=== PATIENT | female | born 1965 | race Caucasian/White ===

== ENCOUNTER → 2019-09-19 | Day surgery (SDC) | payer BC, OTHER ==
--- OUTSIDE RECORDS SUMMARY | 2019-09-19 09:36 | XMS REPORT | Continuity of Care Document ---
:1965 Author Organization [employer] Care Team Providers Name Role Phone [facility] [employer] Unavailable Un available Problems Problem Status Onset Classification Date Comments Sourc e Date Reported CERVICAL STENOSIS Active 03/23/[address] REMOVING BULDING Active 03/15/20 [facility] DIS [address] [place] [address] REMOVE BULDING DISC Active 03/15/[address] Cervical Active 10/01/19 Problem 10/09/2016 Data [facility] radiculopathy 15 migrated Medica l (disorder) from [facility], [facility] OPID on 12/01/14. [place] Pain in thoracic Active 10/01/19 Problem 10/09/2016 Data [facility] spine (finding) 15 migrated Medi johny from [facility], [facility] OPID on 12/01/14. [place] Skin sensation Active 10/01/19 Problem 10/09/2016 Data [place] disturbance 15 migrated Medical (finding) from [facility], [facility] OPID on 12/01/14. [place] LONG-TERM (CURRENT) Active 10/01/19 Condition 10/19/2014 [facility] USE OF OTHER 15 Neuro MEDICATIONS CERVICAL NECK PAIN Active 10/01/19 Condition 10/19/2014 [facility] 15 Neuro PAIN IN THORACIC Active 10/01/19 Condition 10/19/2014 [place] g[place] SPINE 15 Neuro CERVICAL Active 10/01/19 Condition 10/19/2014 [facility] RADICULOPATHY 15 Neuro DISTURBANCE OF SKIN Active 10/01/19 Condition 10/19/2014 [facility] SENSATION 15 Neuro Asthma (disorder) Active Problem 10/09/2016 [facility], OPID [place] Cervical disc Active Problem 10/09/2016 [place] disorder (disorder) [facility], [facility] [place] Gastroesophageal Resolved Problem 10/09/2016 [facility] reflux disease Jessica nn (disorder) Hypertensive Active Problem 10/09/2016 [place] as disorder, systemic M edical arterial (disorder) Center, OPID [place] Morbid obesity Active Problem 10/09/2016 [place] (disorder[facility] Obesity (disorder) Active Problem 10/09/2016 [facility] Endometriosis Resolved Problem 11/27/2015 [place] (morphologic Medical abnormality) Center, [facility] OTHER CERVICAL DISC Active [facility] DISPLACEMENT, Medica l MID-CE Center SPINAL STENOSIS, Active [facility] CERVICAL REGION [facility] OTHER SPECIFIED Active [facility] CONGENITAL Medical DEFORMITIES Center Medications Medication Details Route Status Patient Ordering Order Source Instructions Provider Date tramadol 50 mg = 1 tab, Active 03/26[facility] [place] hydrochloride 50 PO, Q4H, PRN 2014 Or dical MG Oral Tablet Pain, # 90 tab, C enter 0 Refill(s) {21 See Active 03/26[facility] (Methylprednisol Instructions, 2014 edical one 4 MG Oral PO, Take by Silex Tablet [Medrol]) mouth as } Pack [Medrol directed on Dosepak] label., X 6 day, # 1 Pack, 0 Refill(s), Pharmacy: [facility]/pharmacy #[id number] Docusate Sodium 50 mg = 1 cap, Active H [place] 50 MG Oral PO, BID, PRN 2014 Medical Capsule Constipation, # Center 60 cap, 0 Refill(s), Pharmacy: [facility]/pharmacy #[id number] pneumococcal Notes: (Same Inactive 03/26[facility] [place] capsular as: Pneumovax 2015 [facility] polysaccharide 23) Silex type 1 vaccine / Refrigerate pneumococcal capsular polysaccharide type 10A vaccine / pneumococcal capsular polysaccharide type 11A vaccine / pneumococcal capsular polysaccharide type 12F vaccine / pneumococcal capsular polysacchar influenza virus Notes: (Same Inactive 03/26[facility] vaccine, as: Fluzone 2015 [facility] inactivated Quadrivalent) Center For 3 years of age and older (0.5 mL IM) Shake well before use Losartan Notes: (Same Inactive 03/26[facility] [place] as: Cozaar) [address] [place] [address] Bupropion Notes: (Do not Inactive 03/26[facility] as crush) (Same 2014 Medical As: Wellbutrin Silex SR) phenol Notes: Inactive 03/26[facility] Chloraseptic 2015 Medical [place] (Same as: Silex Chloraseptic, Sore Throat [place]) Benzocaine 15 MG 1 lozenge, Inactive 03/26[facility] / Menthol 3.6 MG Route: PO, 2014 [facility] Lozenge [Cepacol Dosing Weight C enter Sore Throat Pain 109.091, kg, Relief 15/3.6] Q2H, PRN as needed for sore throat, Routine, Start date: 03/26/15 4:00:00, Duration: 30 day, Stop date: 04/25/15 3:59:00 budesonide-formo Notes: (Same No Longer [place] terol 160 as: Symbicort) Active 2014 Medical mcg-4.5 mcg/inh Center inhalation aerosol with adapter ceFAZolin (SCIP) Notes: (Same No Longer [place] + Sodium As: Ancef, Active 2014 Medical Chloride 0.9% IV Kefzol) Silex 100 mL Cefazolin FOR IV SET ONLY MEDICATION WASTE Product Size: 1000 mg Product Wasted: ___ mg Dexamethasone Notes: No Longer [place] Concentration: Active 2014 Medical 4mg/ml [place] Advair Diskus 1 puff, Route: Inactive [place] 500 mcg-50 mcg INHALATION, 2014 Medic al inhalation Drug Form: Silex powder AERO, Dosing Weight 109.091, kg, BID, Start date: 03/25/15 17:00:00, Duration: 30 day, Stop date: 04/24/15 9:00:00 gabapentin 300 Notes: (Same No Longer [place] MG Oral Capsule as: Neurontin) Active 2014 edical [place] Acetaminophen 1 tab, Route: Inactive [place] 325 MG / PO, Drug Form: 2014 Medical Hydrocodone TAB, Dosing Center Bitartrate 10 MG Weight 109.091, Oral Tablet kg, Q4H, Start [[place] 10/325] date: 03/25/15 16:00:00, Duration: 30 day, Stop date: 04/24/15 12:00:00 ceFAZolin (SCIP) 2 gm, Route: Inactive [facility] IVPB, Drug 2014 Medical form: INJ, Q8H, Center Dosing Weight 109.091, kg, Start date: 03/25/15 16:00:00, Duration: 24 hr, Stop date: 03/26/15 8:00:00 Robaxin 500 mg, Route: Inactive [place] PO, Drug form: 2014 Medical TAB, QID, Center Dosing Weight 109.091, kg, PRN Spasm, Start date: 03/25/15 13:55:00, Duration: 30 day, Stop date: 04/24/15 13:54:00 Reglan 10 mg, Route: Inactive [place] IVP, Drug form: [address] [place] [address] INJ, Q6H, Center Dosing Weight 109.091, kg, PRN Nausea & Vomiting, Start date: 03/25/15 13:55:00, Duration: 30 day, Stop date: 04/24/15 13:54:00 NS 1,000 mL 1,000 mL, Rate: No Longer [place] 75 ml/hr, Active 2014 Medical Infuse over: Center 13.3 hr, Route: IV, Dosing Weight 109.091 kg, Total Volume: 1,000, Start date: 03/25/15 13:55:00, Stop date: 04/24/15 13:54:00 Dilaudid 0.5 mg, Route: Inactive Arvin s IV, Q3H, Dosing [facility] Medical Weight 109.091, Center kg, PRN Pain Score 7-10, Start date: 03/25/15 13:55:00, Duration: 30 day, Stop date: 04/24/15 13:54:00 Benzocaine 15 MG 1 lozenge, Inactive [place] / Menthol 3.6 MG Route: MUCOUS 2014 M edical Lozenge [Cepacol MEM, Drug Form: Silex Sore Throat Pain FARZANEH, Dosing Relief 15/3.6] Weight 109.091, kg, Q2H, PRN Sore Throat, Start date: 03/25/15 13:54:00, Duration: 30 day, Stop date: 04/24/15 13:53:00 Benadryl 25 mg, Route: Inactive [place] IVP, ONCE, [facility] Medical Dosing Weight Center 109.091, kg, PRN Itching, Start date: 03/25/15 13:54:00 Clonazepam Notes: (Same No Longer Jose as As: KlonoPIN) Active [address] [place] [address] Hydromorphone Notes: Same as: No Longer [place] Dilaudid Active [address] [place] [address] Labetalol 10 mg, 2 mL, [place] Longer [place] Route: IVP, Active 2014 Medical Drug form: INJ, Center Q5Min, Dosing Weight 109.091, kg, PRN Elevated BP, Start date: 03/25/15 12:28:00, Duration: 5 doses or times, Stop date: 03/26/15 0:00:00 Promethazine Notes: (Same No Longer [place] as: Phenergan) Active 2014 Medical Center Acetaminophen Notes: Do not No Longer [place] 325 MG / exceed 4gm/day Active 2014 Medical Hydrocodone of Center Bitartrate 10 MG acetaminophen. Oral Tablet (Same as: [place] [[place] [address]] 325/10) Dexamethasone 4 mg, Route: Inactive [place] IVP, Q6H, 2014 Medical Dosing Weight Center 109.091, kg, Start date: 03/25/15 12:00:00, Duration: 30 day, Stop date: 04/24/15 6:00:00 Promethazine 6.25 mg, Route: Inactive [facility] IVPB, ONCE, 2014 Medical Dosing Weight Center 109.091, kg, PRN Nausea & Vomiting, Start date: 03/25/15 11:53:00 Midazolam 1 mg, Route: Inactive [facility] IVP, Q5Min, 2014 Medical Dosing Weight Center 109.091, kg, PRN Anxiety, Start date: 03/25/15 11:53:00, Duration: 2 doses or times, Stop date: Limited # of times Hydromorphone 0.5 mg, Route: Inactive [facility] IVP, Q5Min, 2014 Medical Dosing Weight Center 109.091, kg, PRN Pain Score 7-10, Start date: 03/25/15 11:53:00, Duration: 4 doses or times, Stop date: Limited # of times Labetalol 10 mg, Route: Inactive [place] s IVP, Q5Min, 2014 Medical Dosing Weight Center 109.091, kg, PRN Elevated BP, Start date: 03/25/15 11:53:00, Duration: 5 doses or times, Stop date: Limited # of times Hydromorphone 0.5 mg, Route: Inactive [facility] IVP, Q5Min, 2014 Medical Dosing Weight Center 109.091, kg, PRN Pain Score 7-10, Start date: 03/25/15 11:45:00, Duration: 4 doses or times, Stop date: Limited # of times Promethazine 6.25 mg, Route: Inactive [facility] IVPB, ONCE, 2014 Medical Dosing Weight Center 109.091, kg, PRN Nausea & Vomiting, Start date: 03/25/15 11:45:00 Labetalol 10 mg, Route: Inactive [place] IVP, Q5Min, 2014 Medical Dosing Weight Center 109.091, kg, PRN Elevated BP, Start date: 03/25/15 11:45:00, Duration: 5 doses or times, Stop date: Limited # of times 72 HR 1.5 mg, 1 Inactive [facility] Scopolamine patch, Route: 2014 Medica l 0.0139 MG/HR TOP, Dosing Center Transdermal Weight 109.091, Patch kg, ONCE, Start date: 03/25/15 11:20:00, Stop date: 03/25/15 11:20:00 Reglan Notes: (Same No Longer [facility] as: Reglan) Active 2014 Medical Center Benadryl Notes: (Same Inactive [facility] as: Benadryl) 2014 [facility] Benzocaine 15 MG Notes: Cepacol No Longer [facility] / Menthol 3.6 MG lozenges Active 2014 Medica l Lozenge [Cepacol Dispense 1 box Center Sore Throat Pain = 16 lozenges Relief 15/3.6] (Same As: Cepacol Lozenges) Zofran 4 mg, Route: Inactive [facility] PO, Drug form: 2014 Medical TAB, Q8H, Center Dosing Weight 109.091, kg, PRN Nausea, Start date: 03/25/15 11:10:00, Duration: 30 day, Stop date: 04/24/15 11:09:00 200 ACTUAT Notes: No Longer [facility] Albuterol 0.09 Albuterol 90 Active 2014 Medi johny MG/ACTUAT microgram/inh Center Metered Dose 8gm HFA Same Inhaler [ProAir as: Ventolin, HFA] Proventil Zofran Notes: (Same No Longer [place] as: Zofran) Active 2014 Medical Center Robaxin Notes: (Same No Longer [place] as:Robaxin) Active 2014 Medical Center NS 1000 mL 1,000 mL, Rate: Inactive [place] 75 ml/hr, 2014 Medical Infuse over: Center 13.3 hr, Route: IV, Dosing Weight 109.091 kg, Total Volume: 1,000, Start date: 03/25/15 11:09:00, Duration: 30 day, Stop date: 04/24/15 11:08:00 Dilaudid Notes: Same as: [place] Longer [place] Dilaudid Active 2014 [facility] Center Acetaminophen 1 tab, PO, TID, Active [place] 325 MG / PRN Pain, X 30 2015 Medical Hydrocodone day, # 90 day, Cente r Bitartrate 10 MG 0 Refill(s) Oral Tablet [[place] 10/325] Docusate Sodium 50 mg = 1 cap, No Longer [place] 50 MG Oral PO, BID, PRN Active 2014 Medical Capsule Constipation, # Center 60 cap, 0 Refill(s) Methocarbamol 500 mg = 1 tab, Active [place] 500 MG Oral PO, Q8H, PRN 2015 Medical Tablet [Robaxin] Spasms, X 20 Ce nter day, # 60 tab, 0 Refill(s) Ondansetron 4 MG 4 mg, PO, Q8H, Active [place] Oral Tablet PRN Nausea, X 2015 Medica l [Zofran] 15 day, # 45 Center tab, 0 Refill(s) {21 See No Longer [place] (Methylprednisol Instructions, Active 2014 edical one 4 MG Oral PO, Take by Center Tablet [Medrol]) mouth as } Pack [Medrol directed on Dosepak] label., X 6 day, # 1 Pack, 0 Refill(s) bupivacaine Notes: (Same No Longer [place] liposome as: Exparel) Active 2014 Medical NOT FOR IV Center use Postoperative analgesia: Infiltration (local): Dose is based on surgical site and volume required to cover the area (in general, the maximum total dose is 266 mg). Bunionectomy: 7 mL into the tissues surrounding the osteotomy and 1 mL into the subcutaneous tissue of the surgical site (total dose = 8 mL [106 mg]) Hemorrhoidectom y: 30 mL (20 mL vial diluted with 10 mL NS) divided and administered as 6 injections of 5 mL each (total dose = 30 mL [266 mg]) ceFAZolin Notes: Same as: No Longer Gene Zheng Active 2014 [facility] gabapentin 300 600 mg = 2 cap, Active H [place] MG Oral Capsule PO, TID, 0 2015 Medic al Refill(s) Silex buPROPion 300 300 mg = 1 tab, Active [place] mg/24 hours oral PO, Daily, # 30 2015 Medical extended release tab, 0 Center tablet Refill(s) tramadol 2 tabs, PO, Active [place] hydrochloride 50 Q4H, 0 2015 Medical MG Oral Tablet Refill(s) Silex losartan 50 mg 50 mg = 1 tab, Active [place] oral tablet PO, Daily, # 30 2015 Medi johny tab, 0 Center Refill(s) 200 ACTUAT 2 puff, Active [place] Albuterol 0.09 INHALER, Q4H, 2015 Med ical MG/ACTUAT PRN for Center Metered Dose wheezing, # 8.5 Inhaler [ProAir gm, 0 Refill(s) HFA] Advair Diskus 1 puff, Active [place] 500 mcg-50 mcg INHALATION, 2015 Medic al inhalation BID, # 1 ea, 3 Center powder Refill(s) clonazePAM 1 mg 1 mg = 1 tab, Active [place] oral tablet PO, TID, prn, 0 2014 Medi johny Refill(s) Center GABAPENTIN 300 1 PO Q HS Active 10/19/ [facility] MG CAPS 2015 Neuro TYLENOL WITH 1-2 tablets Active CODEINE #3 every 6 hours 2015 Neuro 300-30 MG TABS as needed for pain GABAPENTIN 100 Take one Active 10/12/ [facility] MG CAPS capsule by 2015 Neuro mouth twice a day NORCO 7.5-325 MG 1 PO Q 8 hours Active 09/30/ [facility] TABS PRN pain 2014 Neuro GABAPENTIN 300 take one tab po No Longer 09/30/ [facility] MG CAPS qhs x 3 nights, Active 2014 Neuro then one tab po bid x 3 days, then one tab po tid Allergies, Adverse Reactions, Alerts Substance Category Reaction Severity Reaction Status Date Comments S ource type Reported Cipro<sup>1 Assertion Drug Active Rash OPID </sup> allergy [place] Immunizations Immunization Date Given Site Status Last Comments Source Updated pneumococcal 03/26/2015 Left completed Doetsch Jose as 23-valent vaccine Deltoid Or dical Center, [facility] influenza virus 03/26/2015 Right completed Doetsch [facility] vaccine, Deltoid Medical inactivated Center,M H [facility] [place] Results Order Name Results Value Reference Date Interpretation Comments Farheen rce Range CHEM PANEL eGFR 71 03/25 Result Comment: The Medical eGFR is Center calculated using the CKD-EPI formula. In most young, healthy individuals the eGFR will be >90 mL/min/1.73m2 . The eGFR declines with age. An eGFR of 60-89 may be normal in some populations, particularly the elderly, for whom the CKD-EPI formula has not been extensively validated. Use of the eGFR is not recommended in the following populations:< br/>
Elen viduals with unstable creatinine concentration s, including patients and those with serious co-morbid conditions.<b r/>
Patie nts with extremes in muscle mass or diet.

The data above are obtained from the National Kidney Disease Education Program (NKDEP) which additionally recommends that when the eGFR is used in patients with extremes of body mass index for purposes of drug dosing, the eGFR should be multiplied by the estimated BMI. CHEM PANEL Chloride Lvl 105 95 - 109 03/25 [facility] CHEM PANEL Calcium Lvl 8.6 8.5 - 10.5 03/25 [facility] CHEM PANEL CO2 27 24 - 32 03/25 [facility] CHEM PANEL AGAP 15.1 10.0 - 03/25 [facility] 20.0 [facility] CHEM PANEL BUN 10 7 - 22 03/25 [facility] CHEM PANEL Glucose Lvl 78 70 - 99 03/25 [facility] CHEM PANEL Sodium Lvl 143 135 - 145 03/25 [facility] CHEM PANEL Creatinine 0.93 0.50 - 03/25 [facility] Lvl 1.40 /2014 [facility] CHEM PANEL Potassium Lvl 4.1 3.5 - 5.1 03/25 [facility] ELECTROLYTES AGAP 15.3 10.0 - 03/15 [place] 20.0 [facility] ELECTROLYTES eGFR 56 03/15 [facility] Comment: The Medical eGFR is Center calculated using the CKD-EPI formula. In most young, healthy individuals the eGFR will be >90 mL/min/1.73m2 . The eGFR declines with age. An eGFR of 60-89 may be normal in some populations, particularly the elderly, for whom the CKD-EPI formula has not been extensively validated. Use of the eGFR is not recommended in the following populations:< br/>
Elen viduals with unstable creatinine concentration s, including patients and those with serious co-morbid conditions.<b r/>
Patie nts with extremes in muscle mass or diet.

The data above are obtained from the National Kidney Disease Education Program (NKDEP) which additionally recommends that when the eGFR is used in patients with extremes of body mass index for purposes of drug dosing, the eGFR should be multiplied by the estimated BMI. ELECTROLYTES Calcium Lvl 9.5 8.5 - 10.5 03/15 [place] [facility] ELECTROLYTES Sodium Lvl 148 135 - 145 03/15 [facility] ELECTROLYTES CO2 31 24 - 32 03/15 [facility] ELECTROLYTES Chloride Lvl 107 95 - 109 03/15 [facility] ELECTROLYTES Potassium Lvl 5.3 3.5 - 5.1 03/15 [facility] ELECTROLYTES Creatinine 1.13 0.50 - 03/15 [facility] Lvl 1.40 [facility] ELECTROLYTES Glucose Lvl 106 70 - 99 03/15 [facility] ELECTROLYTES BUN 10 7 - 22 03/15 2014 [facility] HEMATOLOGY Lymphocytes 29.7 20.0 - 03/15 [place] 40.0 [facility] HEMATOLOGY Segs 52.4 45.0 - 03/15 [place] 75.0 [facility] HEMATOLOGY Lymphocytes # 2.1 1.0 - 5.5 03/15 [facility] HEMATOLOGY Segs-Bands # 3.7 1.5 - 8.1 03/15 [facility] HEMATOLOGY Basophils 1.1 0.0 - 1.0 03/15 [facility] HEMATOLOGY Eosinophils 8.2 0.0 - 4.0 03/15 [facility] HEMATOLOGY Basophils # 0.1 0.0 - 0.2 03/15 [facility] HEMATOLOGY Eosinophils # 0.6 0.0 - 0.5 03/15 [place] [facility] HEMATOLOGY Monocytes # 0.6 0.0 - 0.8 03/15 [facility] HEMATOLOGY Monocytes 8.6 2.0 - 12.0 03/15 [facility] HEMATOLOGY Platelet 282 133 - 450 03/15 [facility] HEMATOLOGY Hgb 13.1 12.0 - 03/15 [place] 16.0 [facility] HEMATOLOGY RBC 4.37 4.20 - 03/15 [place] 5.40 /2014 [facility] HEMATOLOGY WBC 7.1 3.7 - 10.4 03/15 [facility] HEMATOLOGY MCH 30.0 27.0 - 03/15 [place] 31.0 [facility] HEMATOLOGY MCV 93.9 80.0 - 03/15 98.0 [facility] HEMATOLOGY Hct 41.1 36.0 - 03/15 48.0 [facility] HEMATOLOGY MCHC 32.0 32.0 - 03/15 36.0 [facility] HEMATOLOGY RDW 12.9 11.5 - 03/15 14.5 [facility] HEMATOLOGY MPV 8.9 7.4 - 10.4 03/15 [facility] SPECIAL Hgb A1C 5.5 <=5.6 % 03/15 [facility] Pathology Reports No Data Provided for This Section Diagnostic Reports Report Value Date Source Hip wo contrast MRI EXAM: MR RIGHT HIP WITHOUT CONTRAST 10/07/19 17 [facility] [place] EXAM: MR LEFT HIP WITHOUT CONTRAST DATE: 10/06/2016 6:25 PM CDT INDICATION: Bilateral hip pain. COMPARISON: None TECHNIQUE: Multiplanar, multisequence MR noncont rast imaging of each hip. DISCUSSION: Labrum: Bilateral degenerative tear of the ante rosuperior labrum. Ligaments: The visualized li gamentum teres and the capsular ligaments are intact. Muscles: No signal abnormality in the muscles. Cartilage: No focal defects. No subchondral [place] ow changes. Bone: No fracture is identif ied. Visualized bone marrow signal is within normal limits. Mild osteophyte and articular surface irregularity of the pubic symphysis. Soft tissue: No joint effusi on or fluid collection. No abnormality of the neurovascular structures. Minimal asymmetric edema over the greater trochanters, right greater than left. IMPRESSION: 1. Bilateral degenerative te ars of the anterosuperior labrum. No chondromalacia of the hip joints. 2. Minimally asymmetric ena a over the right greater trochanter, which can be seen in mild greater trochanter bursitis. 3. Mild pubic symphyseal osteoarthrosis. Hip wo contrast MRI EXAM: MR RIGHT HIP WITHOUT CONTRAST 10/07/19 17 [facility] [place] EXAM: MR LEFT HIP WITHOUT CONTRAST DATE: 10/06/2016 6:25 PM CDT INDICATION: Bilateral hip pain. COMPARISON: None TECHNIQUE: Multiplanar, multisequence MR noncont rast imaging of each hip. DISCUSSION: Labrum: Bilateral degenerative tear of the ante rosuperior labrum. Ligaments: The visualized li gamentum teres and the capsular ligaments are intact. Muscles: No signal abnormality in the muscles. Cartilage: No focal defects. No subchondral [place] ow changes. Bone: No fracture is identif ied. Visualized bone marrow signal is within normal limits. Mild osteophyte and articular surface irregularity of the pubic symphysis. Soft tissue: No joint effusi on or fluid collection. No abnormality of the neurovascular structures. Minimal asymmetric edema over the greater trochanters, right greater than left. IMPRESSION: 1. Bilateral degenerative te ars of the anterosuperior labrum. No chondromalacia of the hip joints. 2. Minimally asymmetric ena a over the right greater trochanter, which can be seen in mild greater trochanter bursitis. 3. Mild pubic symphyseal osteoarthrosis. Spine lumbar wo EXAM: MRI LUMBAR SPINE WITHOUT CONTRAST 10/07/19 17 [facility] [place] contrast MRI DATE: 10/06/2016 INDICATION: pain - r COMPARISON: None. TECHNIQUE: Sagittal T1, sagi ttal T2, sagittal T2 with fat saturation, axial T1, and axial T2-weighted images of the lumbar spine are obtained without contrast. DISCUSSION: The conus medullaris termina bruce at the level of L1. The lumbar vertebral bodies are normal in height and alignment. At L1-L2, no spinal canal or foraminal narrowing is present. At L2-L3, endplate spurring with superimposed central disc protrusion/extrusion with no high-grade spinal canal narrowing. Bilateral foramina are patent. At L3-L4, endplate spurring and disc bulge with no spinal canal or foraminal narrowing. At L4-L5, bilateral facet ar thropathy resulting in bilateral subarticular zone narrowing and abutment of traversing right L5 nerve root. Bilateral foramina are patent. At L5-S1, no high-grade spin al canal narrowing is present. Facet arthropathy and endplate spurring resulting in moderate to marked left neural foraminal narrowing with impingement of the left exiting L5 nerve root. Mild right foraminal narrowing. IMPRESSION: 1. Mild degenerative change s contributing to moderate to marked left neural foraminal narrowing L5-S1 with impingement of the left exiting L5 nerve root. Degenerative facet arthropathy at L4-L5 resulti ng in subarticular zone narr owing and abutment of traversing right L5 nerve root. Spine cervical 2 or 3 EXAM: XR CERVICAL SPINE 2 VIEWS 11/24/2015 [facility] [place] view DX DATE: 11/24/2015, 0952 hours INDICATION: Spinal stenosis COMPARISON: None TECHNIQUE: AP and lateral views of the cervical spine FINDINGS: There has been gary or anterior cervical disc fusion at C5-6 with intervertebral disc spacer with incorporation. There is no perihardware lucency or evidence of failure. Remainder of the vertebr al body heights and disc spa paxton are maintained. Minimal grade 1 retrolisthesis of C3 on C4. No acute fracture or malalignment is identified. Facet arthropathy of the mid and lower cervical spine. Prevertebral soft tissues are within normal limits. IMPRESSION: 1. Satisfactory appearance o f the anterior cervical disc fusion at C5-6 without hardware failure. No acute fracture or malalignment is identified. 2. Minimal grade 1 retrolist hesis at C3-4 with facet arthropathy from the mid to lower cervical spine. Consultation Notes No Data Provided for This Section Discharge Summaries No Data Provided for This Section History and Physicals No Data Provided for This Section Vital Signs Vital Sign Value Date Comments Source Heart Rate 70 03/26/2015 [facility] Systolic (mm Hg) 102 03/26/2015 [facility] Diastolic (mm Hg) 65 03/26/2015 [facility] Systolic (mm Hg) 95 03/26/2015 [facility] Diastolic (mm Hg) 61 03/26/2015 [facility] Respitory Rate 18 03/26/2015 [facility] Heart Rate 57 03/26/2015 [facility] Temperature Oral (F) 98.1 F 03/26/2015 [facility] Systolic (mm Hg) 107 03/26/2015 [facility] Diastolic (mm Hg) 64 03/26/2015 [facility] Respitory Rate 18 03/26/2015 [facility] Heart Rate 55 03/26/2015 [facility] Temperature Oral (F) 97.8 F 03/26/2015 [facility] Respitory Rate 18 03/26/2015 [facility] Temperature Oral (F) 98.0 F 03/26/2015 [facility] Height 165.1 cm 03/25/2015 [facility] BMI Calculated 40.02 03/25/2015 [facility] Weight 109.091 03/25/2015 [facility] BMI Calculated 40.69 03/15/2015 [facility] Weight 110.909 03/15/2015 [facility] Height 165.1 cm 03/15/2015 [facility] Height 65 10/19/2014 [facility] Systolic (mm Hg) 125 10/19/2014 [facility] Diastolic (mm Hg) 85 10/19/2014 [facility] Heart Rate 75 10/19/2014 [facility] Weight 247.8 10/19/2014 [facility] Temperature Oral (F) 98.3 F 10/19/2014 [facility] Systolic (mm Hg) 133 10/06/2014 [facility] Diastolic (mm Hg) 84 10/06/2014 [facility] Heart Rate 83 10/06/2014 [facility] Temperature Oral (F) 98.3 F 10/06/2014 [facility] Height 65 09/30/2014 [facility] Weight 247.1 09/30/2014 [facility] Temperature Oral (F) 98.0 F 09/30/2014 [facility] Heart Rate 82 09/30[facility] Systolic (mm Hg) 124 09/30/2014 [facility] Diastolic (mm Hg) 86 09/30/2014 [facility] Weight 247.1 09[facility]2014 [facility] Height 65 09/30/2014 [facility] Temperature Oral (F) 98.0 F 09/30/2014 [facility] Respitory Rate 12 09/30/2014 [facility] Heart Rate 82 09/30/2014 [facility] Systolic (mm Hg) 124 09/30/2014 [facility] Diastolic (mm Hg) 86 09/30/2014 [facility] En[facility] Location Location Encounter Encounter Reason Attending ADM DC Stat us Source Details Type Number For Provider Date Date [place] [facility] [id number] Lilia 10/19 10/19 [facility] Visit [address] [facility] [id number] 12/22 [facility] [id number] 12/22 [facility] Outpatient [id number] JEWEL RAMOS 02/01 Act [place] [facility] [id number] JEWEL RAMOS 03/15 [facility] [place] [facility] [id number] JEWEL RAMOS 03/25 Act [facility] Inpatient [id number] Jewel Ramos 03/25 03/26 [facility]2014 [facility] Outpatient [id number] YULIA 04/05 [facility] Outpatient [id number] JEWEL RAMOS [facility] Outpatient [id number] JEWEL RAMOS 06/27 [facility] Out[facility] [id number] JEWEL RAMOS 08/22 [facility] [place] Outpatient [id number] JEWEL RAMOS 11/23 Act j[facility]ae [facility] Outpt Diag [id number] Jewel Ramos 11/23 11/24 [facility] [place] Outpatient [id number] LILIA01/09 [facility] [place] Outpatient [id number] LILIA01/25 [facility] Outpatient [id number] 09/20 [facility] Outpatient [id number] 10/03 [facility] [place] [facility] Outpt Diag [id number] 10/06 [facility] [place] Outpatient [id number] 10/[address] [facility] [place] Outpatient [id number] 10/[address] [facility] [place] Outpatient [id number] 11/[address] [facility] Procedures Procedure Code Date Perfomer Comments Source Fusion (ACDF C5/6) [id number] 03/25/2015 [facility] D [place] Cervical epidural [id number] 10/06/2014 [place] C7-T1 #1 Medical injection<sup>1</sup> [facility], [facility] [place] Appendectomy [id number] [facility] [place] Cholecystectomy [id number] [facility] [place] Hysterectomy [id number] [facility] [place] Assessment and Plan No Data Provided for This Section Plan of Care No Data Provided for This Section Social History Social History Date Source Social History TypeResponse 02/02/2015 [employer] Employment/School Status: Employed. Alcohol Current, Frequency: 1-2 times per month. Smoking Status Never smoker; Exposure to Tobacco Smoke None; Cigarette Smoking Last 365 Days No; Reg Smoking Cessation Counseling No Social History TypeResponse 02/02/2015 [facility] Employment/School Status: Employed. Alcohol Current, Frequency: 1-2 times per month. Smoking Status Never smoker; Exposure to Tobacco Smoke None; Cigarette Smoking Last 365 Days No; Reg Smoking Cessation Counseling No Family History No Data Provided for This Section Advance Directives No Data Provided for This Section Functional Status No Data Provided for This Section
--- OUTSIDE RECORDS SUMMARY | 2019-09-19 09:38 | XMS REPORT | Continuity of Care Document ---
:1965 Author Organization [facility] t Address [address] [place] [address] Care Team Providers Name Role Phone Doctor Unassigned, Name Attending Clinician Unavailable Rashad ANDERSON Attending Clinician Felicity Attending Clinician Unavailable Rosario Fields Attending Clinician Carmen Ramos Attending Clinician Carmen Ramos Admitting Clinician Payers Payer Name Policy Type Policy Number Effective Date Expiration Date S ource Problems Condition Condition Condition Status Onset Resolution Last Treating Co mments Source Name Details Category Date Date Treatment Clinician Date CERVICAL Diagnosis Active 2014-042015-05-03 M emoria STENOSIS 05-24 16:21:00 l CERVICAL 00:00: Jose n STENOSIS 00 Active 03/23/2015 [facility] REMOVING Diagnosis Active 2014-042015-03-26 M emoria BULDING 05-16 15:49:00 l DIS REMOVING 14:25: Jose n BULDING 00 DIS Active 03/15/2015 [facility] REMOVE Diagnosis Active 2014-042015-05-01 Mem oria BULDING 2-07 15:39:00 l DISC REMOVE 14:20: [place] BULDING 00 DISC Active 03/15/2015 [facility] Cervical Problem Active 2016-10-09 Mem oria radiculopa 09-30 00:47:32 l thy Cervical 00:00: Jose n (disorder) radiculopa 00 thy (disorder) Active 09/30/2014 Problem 10/09/2016 Data migrated from [employer] on 12/01/14. [facility] OPID [place] Pain in Problem Active 2016-10-09 Manny emily thoracic 09-30 00:47:32 l spine Pain in 00:00: [place] (finding) thoracic 00 spine (finding) Active 09/30/2014 Problem 10/09/2016 Data migrated from [employer] on 12/01/14. [facility] CARMEN [place] Skin Problem Active 2016-10-09 Memor ia sensation 09-30 00:47:32 l disturbanc Skin 00:00: Jose n e sensation 00 (finding) disturbanc e (finding) Active 09/30/2014 Problem 10/09/2016 Data migrated from [employer] on 12/01/14. [facility] CARMEN [place] LONG-TERM Condition Active 2014-10-19 Memoria (CURRENT) 09-30 09:38:54 l USE OF 00:00: Jamaal OTHER LONG-TERM 00 MEDICATION (CURRENT) S USE OF OTHER MEDICATION S Active 09/30/2014 Condition 5 [facility] CERVICAL Condition Active 2014-10-19 M emoria NECK PAIN 09-30 09:38:54 l CERVICAL 00:00: Jose n NECK PAIN 00 Active 09/30/2014 Condition 5 [facility] PAIN IN Condition Active 2014-10-19 Me moria THORACIC 09-30 09:38:54 l SPINE PAIN IN 00:00: [place] THORACIC 00 SPINE Active 09/30/2014 Condition 5 [facility] CERVICAL Condition Active 2014-10-19 M emoria RADICULOPA 09-30 09:38:54 l THY CERVICAL 00:00: Jose n RADICULOPA 00 THY Active 09/30/2014 Condition 5 [facility] DISTURBANC Condition Active 2014-2014-10-19 Memoria E OF SKIN 09-30 09:38:54 l SENSATION 00:00: Jamaal DISTURBANC 00 E OF SKIN SENSATION Active 09/30/2014 Condition 5 [facility] Gastroesop Problem Resolve 2016-10-09 Memoria hageal d 00:47:32 l reflux Jamaal disease Gastroesop (disorder) hageal reflux disease (disorder) Resolved Problem 10/09/2016 [facility] [place] Endometrio Problem Resolve 2015-11-27 Memoria sis d 03:22:47 l (morpholog Jose n ic Endometrio abnormalit sis y) (morpholog ic abnormalit y) Resolved Problem 11/27/2015 [facility] OPID [place] Asthma Problem Active 2016-10-09 Memor ia (disorder) 00:47:32 l Asthma [place] (disorder) Active Problem 10/09/2016 [facility] OPID [place] Cervical Problem Active 2016-10-09 Mem oria disc 00:47:32 l disorder Cervical Herm yosef (disorder) disc disorder (disorder) Active Problem 10/09/2016 [facility] OPID [place] Hypertensi Problem Active 2016-10-09 M emoria ve 00:47:32 l disorder, Jamaal systemic Hypertensi arterial ve (disorder) disorder, systemic arterial (disorder) Active Problem 10/09/2016 [facility] OPID [place] Morbid Problem Active 2016-10-09 Memor ia obesity 00:47:32 l (disorder) Morbid Herm yosef obesity (disorder) Active Problem 10/09/2016 [facility] OPID [place] Obesity Problem Active 2016-10-09 Manny emily (disorder) 00:47:32 l Obesity Jamaal (disorder) Active Problem 10/09/2016 [facility] [place] OTHER Diagnosis Active 2015-05-03 Mem oria CERVICAL 16:21:00 l DISC OTHER [place] DISPLACEME CERVICAL NT, MID-CE DISC DISPLACEME NT, MID-CE Active [facility] SPINAL Diagnosis Active 2015-05-03 Mem oria STENOSIS, 16:21:00 l CERVICAL SPINAL Jose n REGION STENOSIS, CERVICAL REGION Active [facility] 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 [facility] Allergies, Adverse Reactions, Alerts Allergy Allergy Status Severity Reaction(s) Onset Inactive Treating Comm ents Source Name Type Date Date Clinician ciproflo DA Active [facility] 2019-0 [facility] xacin 2-17 [place] [facility] ciproflo DA Active [facility] xacin 2-14 [place] 00:[facility] ciproflo DA Active [facility] xacin 8-29 [place] 00:[facility]ope [facility] ciproflo DA Active [facility] xacin 6-28 [place] 00:00: [facility] ciproflo DA Active [place] 2017-04 [facility] x[facility] 2-26 [facility] [place] ciproflo DA Active [facility] xacin 9-14 [place] 00:00: [facility]ope 00 [facility] ciproflo DA Active [facility] xacin 7-11 [place] 00:00: [facility] codeine DA Active [place] 2009-0 [facility] 1-20 [place] 00:00: [facility]ope 00 [facility] Cipro<page Cipro<page Active Memori a p>1</sup p>1</sup l > > [place] Social History Social Habit Start Date Stop Date Quantity Comments Source Social History 2015-02-02 2015-02-02 [facility] 14:13:00 14:13:00 Medications Ordered Filled Start Stop Current Ordering Indication Dosage Frequency Signature Comments Components Source Medication Medication Date Date Medication? Clinician (SIG) Name Name tramadol 2014-04 Yes 50 mg = 1 Manny emily hydrochlori 2-18 tab, PO, l de 50 MG 16:28: Q4H, PRN Jessica nn Oral Tablet 20 Pain, # 90 tab, 0 Refill(s) {2014-04 Yes See Memoria (Methylpred 2-18 Instructio l nisolone 4 16:28: ns, PO, Herm yosef MG Oral 17 Take by Tablet mouth as [Medrol]) } directed Pack on label., [Medrol X 6 day, # Dosepak] 1 Pack, 0 Refill(s), Pharmacy: [id number] Docusate 2014-04 Yes 50 mg = 1 Manny emily Sodium 50 2-18 cap, PO, l MG Oral 16:28: BID, PRN Jose n Capsule 15 Constipati on, # 60 cap, 0 Refill(s), Pharmacy: [id number] pneumococca 2014-04 No Notes: Manny emily l capsular 2-18 (Same as: l polysacchar 15:00: Pneumovax H ermann roldan type 1 00 23) vaccine / Refrigerat pneumococca e l capsular polysacchar roldan type 10A vaccine / pneumococca l capsular polysacchar roldan type 11A vaccine / pneumococca l capsular polysacchar roldan type 12F vaccine / pneumococca l capsular polysacchar influenza 2014-04 No Notes: Memori a virus 2-18 (Same as: l vaccine, 15:00: Fluzone Jose n inactivated 00 Quadrivale nt) For 3 years of age and older (0.5 mL IM) Shake well before use Losartan 2014-04 No Notes: Memoria 2-18 (Same as: l 15:00: Cozaar) Jama[place] 00 Bupropion 2014-04 No Notes: (Do Me moria 2-18 not crush) l 15:00: (Same As: Jama[place] 00 Wellbutrin SR) phenol 2014-04 No Notes: Memoria 2-18 Chlorasept l 10:14: ic [place] 00 (Same as: Chlorasept ic, Sore Throat [place]) Benzocaine 2014-04 No 1 lozenge, M emoria 15 MG / 2-18 Route: PO, l Menthol 3.6 10:00: Dosing Herm yosef MG Lozenge 00 Weight [Cepacol 109.091, Sore Throat kg, Q2H, Pain Relief PRN as 153.6] needed for sore throat, Routine, Start date: 03/26/15 4:00:00, Duration: 30 day, Stop date: 04/25/15 3:59:00 budesonide- 2014-04 No Notes: Manny emily formoterol 2-18 (Same as: l 160 mcg-4.5 03:00: Symbicort) Jamaal mcg/inh 00 inhalation aerosol with adapter ceFAZolin 2014-04 No Notes: Memori a (SCIP) + 2-18 (Same As: l Sodium 01:30: Ancef, Jamaal Chloride 00 Kefzol) 0.9% IV 100 Cefazolin mL FOR IV SET ONLY MEDICATION WASTE Product Size: 1000 mg Product Wasted: ___ mg Dexamethaso 2014-04 No Notes: Manny emily ne 2-18 Concentrat l 00:00: ion: [place] 00 4mg/ml Advair 2014-04 No 1 puff, Memoria Diskus 500 -17 Route: l mcg-50 mcg 23:00: INHALATION H ermann inhalation 00 , Drug powder Form: AERO, Dosing Weight 109.091, kg, BID, Start date: 03/25/15 17:00:00, Duration: 30 day, Stop date: 04/24/15 9:00:00 gabapentin 2014-04 No Notes: Memor ia 300 MG Oral -17 (Same as: l Capsule 22:00: Neurontin) Herm yosef 00 Acetaminoph 2014-04 No 1 tab, Manny emily en 325 MG / 2-17 Route: PO, l Hydrocodone 22:00: Drug Form: [place] Bitartrate 00 TAB, 10 MG Oral Dosing Tablet Weight [[place] 109.091, 10/325] kg, Q4H, Start date: 03/25/15 16:00:00, Duration: 30 day, Stop date: 04/24/15 12:00:00 ceFAZolin 2014-04 No 2 gm, Memoria (SCIP) -17 Route: l 22:00: IVPB, Drug [place] 00 form: INJ, Q8H, Dosing Weight 109.091, kg, Start date: 03/25/15 16:00:00, Duration: 24 hr, Stop date: 03/26/15 8:00:00 Robaxin 2014-04 No 500 mg, Memoria 2-17 Route: PO, l 19:55: Drug form: Jama[place] 00 TAB, QID, Dosing Weight 109.091, kg, PRN Spasm, Start date: 03/25/15 13:55:00, Duration: 30 day, Stop date: 04/24/15 13:54:00 Reglan 2014-04 No 10 mg, Memoria 2-17 Route: l 19:55: IVP, Drug [place] form: INJ, Q6H, Dosing Weight 109.091, kg, PRN Nausea & Vomiting, Start date: 03/25/15 13:55:00, Duration: 30 day, Stop date: 04/24/15 13:54:00 NS 1,000 mL 2014-04 No 1,000 mL, M emoria - Rate: 75 l 19:55: ml/hr, Infuse over: 13.3 hr, Route: IV, Dosing Weight 109.091 kg, Total Volume: 1,000, Start date: 03/25/15 13:55:00, Stop date: 04/24/15 13:54:00 Dilaudid 2014-04 No 0.5 mg, Memori a 05-26 Route: IV, l 19:55: Q3H, Dosing Weight 109.091, kg, PRN Pain Score 7-10, Start date: 03/25/15 13:55:00, Duration: 30 day, Stop date: 04/24/15 13:54:00 Benzocaine 2014-04 No 1 lozenge, M emoria 15 MG / -17 Route: l Menthol 3.6 19:54: MUCOUS Herm yosef MG Lozenge 00 MEM, Drug [Cepacol Form: FARZANEH, Sore Throat Dosing Pain Relief Weight 15/3.6] 109.091, kg, Q2H, PRN Sore Throat, Start date: 03/25/15 13:54:00, Duration: 30 day, Stop date: 04/24/15 13:53:00 Benadryl 2014-04 No 25 mg, Memoria 17 Route: l 19:54: IVP, ONCE, Dosing Weight 109.091, kg, PRN Itching, Start date: 03/25/15 13:54:00 Clonazepam 2014-04 No Notes: Memor ia 2-17 (Same As: l 19:00: KlonoPIN) Hydromorpho 2014-04 No Notes: Manny emily ne 2-17 Same as: l 18:28: Dilaudid Labetalol 2014-04 No 10 mg, 2 Manny emily 2-17 mL, Route: l 18:28: IVP, Drug form: INJ, Q5Min, Dosing Weight 109.091, kg, PRN Elevated BP, Start date: 03/25/15 12:28:00, Duration: 5 doses or times, Stop date: 03/26/15 0:00:00 Promethazin 2014-04 No Notes: Manny emily e 05-26 (Same as: l 18:28: Phenergan) Jama[place] 00 Acetaminoph 2014-04 No Notes: Do M emoria en 325 MG / 17 not exceed l Hydrocodone 18:00: 4gm/day of [place] Bitartrate 00 acetaminop 10 MG Oral hen. Tablet (Same as: [[place] 10/325] 325/10) Dexamethaso 2014-04 No 4 mg, Memor ia ne 05-26 Route: l 18:00: IVP, Q6H, [place] 00 Dosing Weight 109.091, kg, Start date: 03/25/15 12:00:00, Duration: 30 day, Stop date: 04/24/15 6:00:00 Promethazin 2014-04 No 6.25 mg, Me moria e 05-26 Route: l 17:53: IVPB, [place] 00 ONCE, Dosing Weight 109.091, kg, PRN Nausea & Vomiting, Start date: 03/25/15 11:53:00 Midazolam 2014-04 No 1 mg, Memoria 05-26 Route: l 17:53: IVP, [place] 00 Q5Min, Dosing Weight 109.091, kg, PRN Anxiety, Start date: 03/25/15 11:53:00, Duration: 2 doses or times, Stop date: Limited # of times Hydromorpho 2014-04 No 0.5 mg, Mem oria ne 05-26 Route: l 17:53: IVP, Jama[place] 00 Q5Min, Dosing Weight 109.091, kg, PRN Pain Score 7-10, Start date: 03/25/15 11:53:00, Duration: 4 doses or times, Stop date: Limited # of times Labetalol 2014-04 No 10 mg, Memori a 05-26 Route: l 17:53: IVP, [place] 00 Q5Min, Dosing Weight 109.091, kg, PRN Elevated BP, Start date: 03/25/15 11:53:00, Duration: 5 doses or times, Stop date: Limited # of times Hydromorpho 2014-04 No 0.5 mg, Mem oria ne -17 Route: l 17:45: IVP, [place] 00 Q5Min, Dosing Weight 109.091, kg, PRN Pain Score 7-10, Start date: 03/25/15 11:45:00, Duration: 4 doses or times, Stop date: Limited # of times Promethazin 2014-04 No 6.25 mg, Me moria e 17 Route: l 17:45: IVPB, [place] 00 ONCE, Dosing Weight 109.091, kg, PRN Nausea & Vomiting, Start date: 03/25/15 11:45:00 Labetalol 2014-04 No 10 mg, Memori a -17 Route: l 17:45: IVP, [place] 00 Q5Min, Dosing Weight 109.091, kg, PRN Elevated BP, Start date: 03/25/15 11:45:00, Duration: 5 doses or times, Stop date: Limited # of times 72 HR 2014-04 No 1.5 mg, 1 Memoria Scopolamine 2-17 patch, l 0.0139 17:20: Route: [place] MG/HR 00 TOP, Transdermal Dosing Patch Weight 109.091, kg, ONCE, Start date: 03/25/15 11:20:00, Stop date: 03/25/15 11:20:00 Reglan 2014-04 No Notes: Memoria 2-17 (Same as: l 17:18: Reglan) Benadryl 2014-04 No Notes: Memoria 2-17 (Same as: l 17:17: Benadryl) Benzocaine 2014-04 No Notes: Memor ia 15 MG / 2-17 Cepacol l Menthol 3.6 17:17: lozenges He rmann MG Lozenge 00 Dispense 1 [Cepacol box = 16 Sore Throat lozenges Pain Relief (Same As: 153.6] Cepacol Lozenges) Zofran 2014-04 No 4 mg, Memoria 2-17 Route: PO, l 17:10: Drug form: [place] 00 TAB, Q8H, Dosing Weight 109.091, kg, PRN Nausea, Start date: 03/25/15 11:10:00, Duration: 30 day, Stop date: 04/24/15 11:09:00 200 ACTUAT 2014-04 No Notes: Memor ia Albuterol 2-17 Albuterol l 0.09 17:09: 90 [place] MG/ACTUAT 00 microgram/ Metered inh 8gm Dose HFA Same Inhaler as: [ProAir Ventolin, HFA] Proventil Zofran 2014-04 No Notes: Memoria 2-17 (Same as: l 17:09: Zofran) [place] Robaxin 2014-04 No Notes: Memoria 2-17 (Same l 17:09: as:Robaxin ) NS 1000 mL 2014-04 No 1,000 mL, Me moria 2-17 Rate: 75 l 17:09: ml/hr, Infuse over: 13.3 hr, Route: IV, Dosing Weight 109.091 kg, Total Volume: 1,000, Start date: 03/25/15 11:09:00, Duration: 30 day, Stop date: 04/24/15 11:08:00 Dilaudid 2014-04 No Notes: Memoria 2-17 Same as: l 17:09: Dilaudid Acetaminoph 2014-04 Yes 1 tab, PO, Memoria en 325 MG / 2-17 TID, PRN l Hydrocodone 14:19: Pain, X 30 [place] Bitartrate 00 day, # 90 10 MG Oral day, 0 Tablet Refill(s) [[place] 10/325] Docusate 2014-04 No 50 mg = 1 Manny emily Sodium 50 2-17 cap, PO, l MG Oral 14:19: BID, PRN Jose n Capsule 00 Constipati on, # 60 cap, 0 Refill(s) Methocarbam 2014-04 Yes 500 mg = 1 Memoria ol 500 MG 2-17 tab, PO, l Oral Tablet 14:19: Q8H, PRN He saranyaann [Robaxin] 00 Spasms, X 20 day, # 60 tab, 0 Refill(s) Ondansetron 2014-04 Yes 4 mg, PO, M emoria 4 MG Oral 2-17 Q8H, PRN l Tablet 14:19: Nausea, X Jose n [Zofran] 00 15 day, # 45 tab, 0 Refill(s) {21 2014-04 No See Memoria (Methylpred 2-17 Instructio l nisolone 4 14:19: ns, PO, Herm yosef MG Oral 00 Take by Tablet mouth as [Medrol]) } directed Pack on label., [Medrol X 6 day, # Dosepak] 1 Pack, 0 Refill(s) bupivacaine 2014-04 No Notes: Manny emily liposome -17 (Same as: l 09:00: Exparel) Jamaal NOT FOR IV use Postoperat jenae analgesia: Infiltrati on (local): Dose is based on surgical site and volume required to cover the area (in general, the maximum total dose is 266 mg). Bunionecto my: 7 mL into the tissues surroundin g the osteotomy and 1 mL into the subcutaneo us tissue of the surgical site (total dose = 8 mL [106 mg]) Hemorrhoid ectomy: 30 mL (20 mL vial diluted with 10 mL NS) divided and administer ed as 6 injections of 5 mL each (total dose = 30 mL [266 mg]) ceFAZolin 2014-04 No Notes: Memori a 2-17 Same as: l 09:00: Ancef [place] 00 gabapentin 2014-04 Yes 600 mg = 2 M emoria 300 MG Oral 207 cap, PO, l Capsule 20:50: TID, 0 [place] 00 Refill(s) buPROPion 2014-04 Yes 300 mg = 1 Me moria 300 mg/24 2-07 tab, PO, l hours oral 20:50: Daily, # Her gilman extended 00 30 tab, 0 release Refill(s) tablet tramadol 2014-04 Yes 2 tabs, Memori a hydrochlori 2-07 PO, Q4H, 0 l de 50 MG 20:50: Refill(s) Herm yosef Oral Tablet 00 losartan 50 2014-04 Yes 50 mg = 1 M emoria mg oral 2-07 tab, PO, l tablet 20:50: Daily, # [place] 00 30 tab, 0 Refill(s) 200 ACTUAT 2014-04 Yes 2 puff, Manny emily Albuterol 2-07 INHALER, l 0.09 20:50: Q4H, PRN [place] MG/ACTUAT 00 for Metered wheezing, Dose # 8.5 gm, Inhaler 0 [ProAir Refill(s) HFA] Advair 2014-04 Yes 1 puff, Memoria Diskus 500 2-07 INHALATION l mcg-50 mcg 20:50: , BID, # 1 H ermann inhalation 00 ea, 3 powder Refill(s) clonazePAM 2014-04 Yes 1 mg = 1 Mem oria 1 mg oral 2-07 tab, PO, l tablet 20:50: TID, prn, Jose n 00 0 Refill(s) GABAPENTIN Yes 1 PO Q HS Me moria 300 MG CAPS 7-13 l 00:00: [place] 00 TYLENOL Yes 1-2 Memoria WITH 7-13 tablets l CODEINE #3 00:00: every 6 Herm yosef 300-30 MG 00 hours as TABS needed for pain GABAPENTIN Yes Take one Mem oria 100 MG CAPS 7-06 capsule by l 00:00: mouth Jamaal 00 twice a day NORCO Yes 1 PO Q 8 Memoria 7.5-325 MG 6-24 hours PRN l TABS 00:00: pain [place] 00 GABAPENTIN No take one Mem oria 300 MG CAPS 6-24 tab po qhs l 00:00: x 3 Jamaal 00 nights, then one tab po bid x 3 days, then one tab po tid Vital Signs Vital Name Observation Time Observation Value Comments Source Heart Rate 2015-03-26 16:51:00 [facility] [place] Systolic (mm Hg) 2015-03-26 16:51:00 Manny rial [place] Diastolic (mm Hg) 2015-03-26 16:51:00 Mem orial [place] Systolic (mm Hg) 2015-03-26 13:59:00 Manny rial [place] Diastolic (mm Hg) 2015-03-26 13:59:00 Mem orial [place] Respitory Rate 2015-03-26 13:59:00 Abbeori al [place] Heart Rate 2015-03-26 13:59:00 [facility] [place] Temperature Oral (F) 2015-03-26 13:59:00 98.1 F [facility] [place] Systolic (mm Hg) 2015-03-26 09:40:00 Manny rial [place] Diastolic (mm Hg) 2015-03-26 09:40:00 Mem orial [place] Respitory Rate 2015-03-26 09:40:00 Memori al Jama[place] Heart Rate 2015-03-26 09:40:00 [facility] [place] Temperature Oral (F) 2015-03-26 09:40:00 97.8 F [facility] [place] Respitory Rate 2015-03-26 05:30:00 Memori al [place] Temperature Oral (F) 2015-03-26 05:30:00 98.0 F [facility] [place] Height 2015-03-25 15:33:00 165.1 cm [facility] Jamaal BMI Calculated 2015-03-25 15:33:00 Memori al [place] Weight 2015-03-25 15:33:00 [facility] [place] BMI Calculated 2015-03-15 21:22:00 Memori al [place] Weight 2015-03-15 21:22:00 [facility] [place] Height 2015-03-15 21:22:00 165.1 cm [facility] [place] Height 2014-10-19 14:38:54 [facility] [place] Systolic (mm Hg) 2014-10-19 14:38:54 Manny rial [place] Diastolic (mm Hg) 2014-10-19 14:38:54 Mem orial [place] Heart Rate 2014-10-19 14:38:54 [facility] [place] Weight 2014-10-19 14:38:54 [facility] [place] Temperature Oral (F) 2014-10-19 14:38:54 98.3 F [facility] [place] Systolic (mm Hg) 2014-10-06 14:38:52 Manny rial Jama[place] Diastolic (mm Hg) 2014-10-06 14:38:52 Mem orial [place] Heart Rate 2014-10-06 14:38:52 [facility] [place] Temperature Oral (F) 2014-10-06 14:38:52 98.3 F [facility] [place] Height 2014-09-30 17:27:11 [facility] [place] Weight 2014-09-30 17:27:11 [facility] [place] Temperature Oral (F) 2014-09-30 17:27:11 98.0 F [facility] [place] Heart Rate 2014-09-30 17:27:11 [facility] [place] Systolic (mm Hg) 2014-09-30 17:27:11 Manny rial [place] Diastolic (mm Hg) 2014-09-30 17:27:11 Mem orial Jamaal Weight 2014-09-30 16:36:40 [facility] [place] Height 2014-09-30 16:36:40 [facility] [place] Temperature Oral (F) 2014-09-30 16:36:40 98.0 F [facility] [place] Respitory Rate 2014-09-30 16:36:40 Memori al [place] Heart Rate 2014-09-30 16:36:40 [facility] [place] Systolic (mm Hg) 2014-09-30 16:36:40 Manny jara Jama[place] Diastolic (mm Hg) 2014-09-30 16:36:40 Mem orial Jama[place] Procedures Procedure Date / Time Performing Clinician Source Performed Fusion (ACDF C5/6) 2015-03-25 06:00:00 [facility] Jamaal Cervical epidural steroid 2014-10-06 05:00:00 Me morial [place] injection<sup>1</sup> Appendectomy [facility] Cholecystectomy [facility] Hysterectomy [facility] Encounters Start End Encounter Admission Attending Care Care Encounter Source Date/Time Date/Time Type Type Clinicians Facility Department ID 2019-05-07 2019-05-07 Orders Doctor SVEN [id number] 00:00:00 00:00:00 Only Unassigned, ERIE [id number] [place] [facility] [id number] 2018-12-05 2018-12-05 [id number] 00:00:00 00:00:00 [facility] [id number] [place] [id number] Professio [id number] nal [address] 2016-10-06 2016-10-06 Outpatient CHELLE Fields [facility] [id number] 18:16:00 23:59:00 Lilia 01 Rosario 2015-11-24 2015-11-24 Outpatient Jewel Ramos [facility] [id number] 09:30:00 23:59:00 Hwan 00 2015-03-25 2015-03-26 Outpatient Jewel Ramos [facility] [id number] 07:40:00 11:40:00 Hwan 42 Results Test Description Test Time Test Comments Results Result [facility] Comments - XR FLUORO FOR 2019-05-10 Patient Name: SPINE INJ 7 JOIE FRANKS 12:54:00 Unit No: [id number] EXAMS: CPT CODE: [id number] XR FLUORO FOR SPINE INJ 27040 DIAGNOSTIC CERVICAL TRANSFORAMINAL EPIRADICULAR INJECTION REFERRAL PHYSICIAN: None PREOPERATIVE DIAGNOSIS: Cervical radiculitis.. 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 FINDINGS: Flattening of the nerve root sleeve was seen at C4-5 foramen although fairly good flow seen into the epidural space. More limited flow seen in the proximal foramen of C6-7. Provocation with injection was negative. Anesthetic response was positive with the patient noting complete relief of her left neck and radiating pain. Preinjection VAS 3/10. Postinjection VAS 0/10. Steroid response pending follow-up. ESTIMATED BLOOD LOSS: Minimal ANESTHESIA: TIVA COMPLICATIONS: None. DETAILS OF PROCEDURE: After obtaining stable vital signs, informed consent and IV access, with no contraindications, the patient was taken to the operating room and placed in a 15 degree head-up supine position with all extremities padded and appropriate monitors placed. The patient was sterilely prepped and draped over the neck. Using fluoroscopic visualization, the insertion sites were marked for anterolateral paravertebral approaches and using standard technique, a 27 gauge needle was advanced until contacting each corresponding superior articular process without paresthesias. Isovue-300 contrast 0.5 mL was injected incrementally with digital subtraction to produce each epidurogram. There were no signs of intravascular or intrathecal uptake. Lidocaine 4% 0.8 mL with Decadron 8 mg was then injected incrementally with frequent negative aspirations at each site. There were no signs of intravascular or intrathecal uptake. The needles were removed and the patient was taken to the PACU in good condition. at 1254 Reported and signed by: Tj Flor M.D. CC: Technologist: Andressa Roland(Ilda) Transcribed D/ ([id number]) Yobany.[facility] [place] NAME: TINYJOIE [address] [facility] PHYS: Tj Welsh MD [place], [place] [address] : 1965 AGE: 54 SEX: F LOC: [facility] PHONE #: [phone] EXAM DATE: 05/26/2019 STATUS: REG [facility] FAX #: [phone] RAD #: D/C DT PAGE 1 Signed Report Patient Name: JOIE FRANKS Unit No: [id number] EXAMS: CPT CODE: [id number] XR FLUORO FOR SPINE INJ 04315 <Continued> Orig Print D/T: S: 05/26/2019 (1257) [place] [facility] [place] NAME: JOIE FRANKS [address] [facility] PHYS: Tj Welsh MD [place], [place] [address] : 1965 AGE: 54 SEX: F LOC: [facility] PHONE #: [phone] EXAM DATE: 05/26/2019 STATUS: REG [facility] FAX #: [phone] RAD #: D/C DT PAGE 2 Signed Report - MRI C-SPINE W/O 2019-04-09 Patient Name: CONT 5 JOIE FRANKS 09:32:00 Unit No: [id number] EXAMS: CPT CODE: [id number] MRI C-SPINE W/O CONT [id number] MRI OF THE CERVICAL SPINE: DIAGNOSIS: 1. At C2-3, mild disc degeneration. No central canal stenosis. Mild to moderate right foraminal stenosis mild left foraminal stenosis. 2. At C3-4, moderate disc degeneration. Moderate central canal stenosis AP diameter of 10 mm. Mild cord impingement. Marked bilateral foraminal stenosis. Mild facet arthropathy. 3. At C4-5, moderate disc degeneration. There is a grade 1 spondylolisthesis of C4 on C5. Moderate central canal stenosis. Moderate left foraminal mild to moderate right foraminal stenosis. Moderate right facet and mild left facet arthropathy. 4. At C5-6,patient status post anterior discectomy. Solid interbody fusion. Moderate to marked right foraminal moderate left foraminal stenosis. Mild facet arthropathy. 5. At C6-7, moderate disc degeneration. 2 mm disc bulge. Moderate central canal stenosis. Marked left foraminal moderate right foraminal stenosis. Mild facet arthropathy. 6. At C7-T1, no disc bulge or herniation. No central canal or foraminal stenosis. 7. There is a high signal lesion present inferior pole right lobe of the thyroid gland. This measures approximately 2 x 1.3 cm in size. This is indeterminate lesion and may be further evaluated sonographically. COMMENT: COMPARISON: No prior exams available. Sagittal T1, T2 and STIR and axial T2 and gradient-echo sequences are obtained of the cervical spine. Cervical vertebrae are within normal limits in signal. The findings are as above. at 0932 Reported and signed by: Radu Pedersen MD CC: Tj Flor MD Technologist: GEMINI WISEMAN MRI Transcribed D/ (0932) [facility] NAME: JOIE FRANKS [address] [facility] PHYS: Tj Welsh MD : 1965 AGE: 53 SEX: F [place] [address] LOC: Y.MRI PHONE #: [phone] EXAM DATE: 04/22/2019 STATUS: DEP CLI FAX #: [phone] RAD #: D/C DT PAGE 1 Signed Report Patient Name: JOIE FRANKS Unit No: [id number] EXAMS: CPT CODE: [id number] MRI C-SPINE W/O CONT 85998 <Continued> Orig Print D/T: S: 04/23/2019 (0935) [facility] NAME: JOIE FRANKS [address] [facility] PHYS: Tj Welsh MD : 1965 AGE: 53 SEX: F [place] [address] LOC: Y.MRI PHONE #: [phone] EXAM DATE: 04/22/2019 STATUS: DEP CLI FAX #: [phone] RAD #: D/C DT PAGE 2 Signed Report - XR FLUORO FOR 2018-11-09 Patient Name: SPINE INJ 0 JOIE FRANKS 17:20:00 Unit No: [id number] EXAMS: CPT CODE: [id number] XR FLUORO FOR SPINE INJ 31205 DIAGNOSTIC CERVICAL TRANSFORAMINAL EPIRADICULAR INJECTION REFERRAL PHYSICIAN: None PREOPERATIVE DIAGNOSIS: Cervical radiculitis.. 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 FINDINGS: Moderate facet hypertrophy produces anterior displacement of the C7 nerve root through the foramen and uncovertebral joint spurring produces moderate to marked bony foraminal stenosis in conjunction with the facet joint. Provocation was partially concordant for usual pain. Anesthetic response was positive with the patient noting a moderate to marked reduction of her usual left neck and radiating upper extremity pain. Preinjection VAS 5/10. Postinjection VAS 2/10. Steroid response pending follow-up. ESTIMATED BLOOD LOSS: Minimal ANESTHESIA: TIVA COMPLICATIONS: None. DETAILS OF PROCEDURE: After obtaining stable vital signs, informed consent and IV access, with no contraindications, the patient was taken to the operating room and placed in a 15 degree head up supine position with all extremities padded and appropriate monitors placed. The patient was sterilely prepped and draped over the neck. Using fluoroscopic visualization, the insertion site was marked for anterolateral paravertebral approach and using standard technique, a 27 gauge needle was advanced until contacting the corresponding superior articular process without paresthesias. Isovue-300 contrast 0.5 mL was injected incrementally with digital subtraction to produce the epidurogram. There were no signs of intravascular or intrathecal uptake. Lidocaine 4% 0.8 mL with Decadron 8 mg was then injected incrementally with frequent negative aspirations. Again, there were no signs of intravascular or intrathecal uptake. The needle was removed and the patient was taken to the PACU in good condition. at 1720 Reported and signed by: Tj Flor M.D. [facility] NAME: TINYJOIE JOSE LUIS [address] [facility] PHYS: Tj Welsh MD [place], [place] [address] : 1965 AGE: 53 SEX: F LOC: Y.DARSHANA PHONE #: [phone] EXAM DATE: 12/06/2018 STATUS: REG [facility] FAX #: [phone] RAD #: D/C DT PAGE 1 Signed Report (CONTINUED) Patient Name: JOIE FRANKS Unit No: [id number] EXAMS: CPT CODE: [id number] XR FLUORO FOR SPINE INJ 07408 <Continued> CC: Tj Flor MD Technologist: OSWALD CAMPOVERDE RT(R) Transcribed D/ (6544) t.[email or web address].MTM [facility] NAME: JOIE FRANKS [address] [facility] PHYS: Tj Welsh MD [place] [address] : 1965 AGE: 53 SEX: F LOC: AubreeDARSHANA PHONE #: [phone] EXAM DATE: 12/06/2018 STATUS: REG [facility] FAX #: [phone] RAD #: D/C DT PAGE 2 Signed Report Patient Name: JOIE FRANKS Unit No: [id number] EXAMS: CPT CODE: [id number] XR FLUORO FOR SPINE INJ 27525 <Continued> Orig Print D/T: S: 12/06/2018 (3218) [facility] NAME: JOIE FRANKS [address] [facility] PHYS: Tj Welsh MD [place] [address] : 1965 AGE: 53 SEX: F LOC: AubreeDARSHANA PHONE #: [phone] EXAM DATE: 12/06/2018 STATUS: REG [facility] FAX #: [phone] RAD #: D/C DT PAGE 3 Signed Report NM BONE SPECT 2018-10-08 CLINICAL INDICATION: SCAN 7 M51.34 Other 10:58:54 intervertebral disc degeneration, thoracic region.MODALITY: Discovery NM/CT 670TECHNIQUE: 25 mCi Tc 99m MDP are injected IV. After a suitable time delay, whole body imaging images were obtained. SPECT imaging of the thoracic and lumbar spine is performed with computer and physician-assisted 2-D and 3-D reconstruction. Co-registered low dose limited diagnostic CT images are obtained at the level of SPECT imaging.Computed Tomography Dose Index: 5.44 mGy.FINDINGS:COMPARISO N: Fusion CT exam.CT Comments: none.Symmetric bilateral renal function is observed.Mild arthritic uptake is noted at the bilateral shoulders. Mild to moderate left midfoot and right first MTP joint is seen. There is moderate localization seen at the right C5-[address] fusion imaging of the lumbar spine is reviewed. No significant intervertebral disc uptake is seen. Moderate right L4-5 facet, moderate left L5-S1 facet is visible.SPECT CT fusion of the lower cervical and thoracic spine is reviewed. No thoracic spine uptake is seen. There is mild to moderate uptake noted at the C6-7 disc, site of discectomy. Moderate localization is confirmed at the right C5-6 facet.IMPRESSION:See comments above.PQRS 147: 3570F - XR FLUORO FOR 2018-09-08 Patient Name: SPINE INJ 8 JOIE FRANKS 18:38:00 Unit No: [id number] EXAMS: CPT CODE: [id number] XR FLUORO FOR SPINE INJ 28005 THORACIC EPIRADICULAR INJECTION REFERRAL PHYSICIAN: None PREOPERATIVE DIAGNOSIS: Thoracic Radiculitis POSTOPERATIVE DIAGNOSIS: T6-7 and T5-6 disc degeneration with bilateral T6 radiculitis PROCEDURES PERFORMED: Fluoroscopically guided needle localization of the bilateral T6 spinal nerves with transforaminal epidurograms and epidural steroid injection of local anesthetic and steroid. FINDINGS: Fairly good flow seen through the foramen bilaterally at T6 with good filling of the epidural space both proximally and distally on the left with some limitation of retrograde flow on the right. Provocation with injection was negative. Anesthetic response was positive with the patient noting relief of her thoracic back pain however she developed severe right low back pain at the iliac crest in recovery room. Neurological examination was intact and this appear to be primarily muscle spasm in nature. This improved prior to discharge with stretching and Toradol. Additional neurological examination was intact. Preinjection VAS 6/10. Postinjection VAS 4/10. Steroid response pending follow-up. ESTIMATED BLOOD LOSS: Minimal ANESTHESIA: TIVA COMPLICATIONS: Right low back pain DETAILS OF PROCEDURE: After obtaining stable vital signs, informed consent and IV access, with no contraindications, the patient was taken to the operating room and placed in prone position with all extremities padded and appropriate monitors placed. The patient was sterilely prepped and draped over the thoracic spine. Using fluoroscopic guidance the insertion sites were marked for paravertebral approaches and using standard technique, a 27 gauge needle was advanced toward each corresponding pedicle base without paresthesias. Isovue-300 contrast 0.5 ml was injected incrementally with digital subtraction to produce each epidurogram. There were no signs of intravascular or intrathecal uptake. Lidocaine 4% 0.5 ml was injected as a test dose at each site and again there were no signs of intravascular or intrathecal uptake. Lidocaine 4% 0.5 ml with Decadron 8 mg was then injected incrementally with frequent negative aspirations at each site. Again, there were no signs of intravascular or intrathecal uptake. The needles were removed and the patient was taken to the PACU in good condition [facility] NAME: JOIE FRANKS [address] [facility] PHYS: Tj Welsh MD [place] [address] : 1965 AGE: 53 SEX: F LOC: MAUREEN PHONE #: [phone] EXAM DATE: 10/04/2018 STATUS: [facility] FAX #: [phone] RAD #: D/C DT PAGE 1 Signed Report (CONTINUED) Patient Name: JOIE FRANKS Unit No: [id number] EXAMS: CPT CODE: [id number] XR FLUORO FOR SPINE INJ 14458 <Continued> at 1838 Reported and signed by: Tj Flor M.D. CC: Tj Flor MD Technologist: WIN ALEJANDRE (RT.R) Transcribed D/ (183) [facility]: JOIE FRANKS [address] [facility] PHYS: Tj Welsh MD [place] [address] : 1965 AGE: 53 SEX: F LOC: MAUREEN PHONE #: [phone] EXAM DATE: 10/04/2018 STATUS: [facility] FAX #: [phone] RAD #: D/C DT PAGE 2 Signed Report Patient Name: JOIE FRANKS Unit No: [id number] EXAMS: CPT CODE: [id number] XR FLUORO FOR SPINE INJ 10025 <Continued> Orig Print D/T: S: 10/06/2018 (0852) [facility] NAME: JOIE FRANKS [address] [facility] PHYS: Tj Welsh MD [place], [place] [address] : 1965 AGE: 53 SEX: F LOC: MAUREEN PHONE #: [phone] EXAM DATE: 10/04/2018 STATUS: DEP [facility] FAX #: [phone] RAD #: D/C DT PAGE 3 Signed Report CHEM PANEL 2015-03-09 71 [facility] [place] 15:38:00 CHEM PANEL 2015-03-09 105 [facility] [place] 15:38:00 CHEM PANEL 2015-03-09 8.6 [facility] [place] 15:38:00 CHEM PANEL 2015-03-09 27 [facility] [place] 15:38:00 CHEM PANEL 2015-03-09 15.1 [facility] [place] 15:38:00 CHEM PANEL 2015-03-09 10 [facility] [place] 15:38:00 CHEM PANEL 2015-03-09 78 [facility] [place] 15:38:00 CHEM PANEL 2015-03-09 143 [facility] [place] 15:38:00 CHEM PANEL 2015-03-09 0.93 [facility] [place] 15:38:00 CHEM PANEL 2015-03-09 4.1 [facility] [place] 15:38:00 ELECTROLYTES 15.3 [facility] [place] 22:07:00 ELECTROLYTES 56 [facility] [place] 22:07:00 ELECTROLYTES 9.5 [facility] [place] 22:07:00 ELECTROLYTES 148 [facility] [place] 22:07:00 ELECTROLYTES 31 [facility] [place] 22:07:00 ELECTROLYTES 107 [facility] [place] 22:07:00 ELECTROLYTES 5.3 [facility] [place] 22:07:00 ELECTROLYTES 1.13 [facility] [place] 22:07:00 ELECTROLYTES 106 [facility] [place] 22:07:00 ELECTROLYTES 10 [facility] [place] 22:07:00 HEMATOLOGY 29.7 [facility] [place] 22:07:00 HEMATOLOGY 52.4 [facility] [place] 22:07:00 HEMATOLOGY 2015-12-0 2.1 [facility] [place] 22:07:00 HEMATOLOGY 3.7 [facility] [place] 22:07:00 HEMATOLOGY 1.1 [facility] [place] 22:07:00 HEMATOLOGY 8.2 [facility] [place] 22:07:00 HEMATOLOGY 0.1 [facility] [place] 22:07:00 HEMATOLOGY 0.6 [facility] [place] 22:07:00 HEMATOLOGY 0.6 [facility] [place] 22:07:00 HEMATOLOGY 8.6 [facility] [place] 22:07:00 HEMATOLOGY 282 [facility] [place] 22:07:00 HEMATOLOGY 13.1 [facility] [place] 22:07:00 HEMATOLOGY 4.37 [facility] [place] 22:07:00 HEMATOLOGY 7.1 [facility] [place] 22:07:00 HEMATOLOGY 2015-03-15 22:07:00 Test Item Value Reference Range Interpretation Comme nts MCH (test code = MCH) 30.0 pg 27.0-31.0 [facility] [id number] 22:07:00[facility].9[facility] 2015-03-15 22:07:0041.1[facility] [id number] 22:07:0032.0[facility] [id number] 22:07:0012.9[facility] [id number] 22:07:008.9[facility] HermannSPECIAL [id number] 22:07:005.5[facility]
--- NOTE | 2019-09-19 13:24 | RAD REPORT ---
EXAM DESCRIPTION: US - Guided FNA Non Breast - 09/19/2019 10:19 am CLINICAL HISTORY: Thyroid nodule ICD D44.0 COMPARISON: None TECHNIQUE: Risks, benefits and alternatives of procedure explained to the patient and informed conse nt obtained. Skin and subcutaneous tissues anesthetized with lidocaine. Under sonographic guidance, five 25 gauge needle passes were obtained into the dominant nodule within the right lobe of the thyroid gland. Specimens given to pathology. Patient experienced no immediate complication IMPRESSION: Fine-needle aspiration of a dominant nodule within right lobe of thyroid gland
== END ==
LOC: FNA 09:32
PROVIDERS: ATTEND Otolaryngology
PROC: 0G9H3ZX Drainage of Right Thyroid Gland Lobe, Percutaneous Approach, Diagnostic (ICD-10-PCS; principal; 2019-09-19)
PROC: BG44ZZZ Ultrasonography of Thyroid Gland (ICD-10-PCS; 2019-09-19)
DX: D44.0 Neoplasm of uncertain behavior of thyroid gland (principal)
CPT/HCPCS: 88162